=== PATIENT | female | born 1955 | race Caucasian/White ===

== ENCOUNTER 2017-04-03 06:50 | Day surgery (SDC) | payer BC ==
[~2017-04-03 06:50] MED LIST: Lactated Ringers 1,000 ML IV SCH; Lidocaine 1%/Sod Bicarbonate in NS 8.4% 1 ML Syringe PRN; Sodium Chloride 0.9% 10 ML Syringe FLUSH PRN
[2017-04-03] MEDS ORDERED: Lidocaine 1%/Sod Bicarbonate in NS 8.4% 1 ML Syringe SUBCUT ONE (07:29)
[2017-04-03] MEDS ORDERED: Lactated Ringers 1,000 ML IV SCH (07:30)
[2017-04-03] MEDS ORDERED: Lidocaine 1%/Sod Bicarbonate in NS 8.4% 1 ML Syringe ONE (07:45)
--- NOTE | 2017-04-03 07:58 | PCM.PREANE ---
Preanesthetic Assessment - Procedure Proposed Procedure: Diagnostic Colonoscopy - Anesthesia/Transfusion/Family Hx Anesthesia History: Prior Anesthesia Without Reaction Family History of Anesthesia Reaction: No - Review of Systems General: Fatigue Pulmonary: No Symptoms Cardiovascular: Chest Pain (monor chest pressure with evening lovenox dose) Gastrointestinal: No symptoms Neurological: Headache (has recently had severe Head aches. uncertain etiology) , Weakness (Right upper extremity from recent thoracic outlet syndrome, currently improving) Other: Reports: Thyroid Problems (has been hypothyroid in the past. currently euthyroid per current provider) - Physical Assessment NPO Status Date: 04/02/17 NPO Status Time: 22:00 O2 Sat by Pulse Oximetry: 96 Respiratory Rate: 16 Vital Signs: Last Vital Signs Temp 36.7 C 04/03/17 07:00 Pulse 95 04/03/17 07:00 Resp 16 04/03/17 07:00 BP 156/80 H 04/03/17 07:00 Pulse Ox 96 04/03/17 07:00 Height: 1.7 m Weight: 90.718 kg ASA Class: 3 Mental Status: Alert & Oriented x3 Airway Class: Mallampati = 2 Dentition: Reports: Normal Dentition Thyro-Mental Finger Breadths: 3 Mouth Opening Finger Breadths: 3 ROM/Head Extension: Full Lungs: Clear to auscultation, Normal respiratory effort Cardiovascular: Regular Rate, Regular Rhythm, No Murmurs - Allergies Allergies/Adverse Reactions: Allergies Allergy/AdvReac Type Severity Reaction Status Date / Time chlordiazepoxide Allergy Cannot Verified 03/30/17 16:11 [From Librax (with Remember clidinium)] clidinium Allergy Cannot Verified 03/30/17 16:11 [From Librax (with Remember clidinium)] ofloxacin Allergy Cannot Verified 03/30/17 16:11 Remember Influenza Virus Vaccines AdvReac Nausea and Verified 03/30/17 16:11 Vomiting levofloxacin [From Levaquin] AdvReac Nausea Verified 03/30/17 16:11 sertraline HCl [From Zoloft] AdvReac Nausea Verified 03/30/17 16:11 - Anesthesia Plan Beta Evelio: Metoprolol (extended release) Med Last Dose Date: 04/02/17 (takes only once every 24 hours) Med Last Dose Time: 09:00 - Acknowledgements Anesthesia Type Planned: MAC Pt an Appropriate Candidate for the Planned Anesthesia: Yes Alternatives and Risks of Anesthesia Discussed w Pt/Guardian: Yes Pt/Guardian Understands and Agrees with Anesthesia Plan: Yes PreAnesthesia Questionnaire HEENT History: Reports: Allergic Rhinitis, Cataract, Impaired Vision Cardiovascular History: Reports: Hypertension Respiratory History: Reports: PE (recent PE as well as emboli in abdomen. currently bridge anticoagulated with Lovenox), SOB, Other (See Below) (recent thoracic outlet syndrome) Gastrointestinal History: Reports: GERD, Other (See Below) Other Gastrointestinal History: sigmoid mass, biliary colic, gastric ulcer Genitourinary History: Reports: None [employer]ED [employer] OPERATOR History: Reports: None Other Musculoskeletal History: Chronic neck "stiffness" Other Neuro History: viral encephalitis Psychiatric History: Reports: Anxiety, Depression Endocrine/Metabolic History: Reports: Hypothyroidism Hematologic History: Reports: None Immunologic History: Reports: None Oncologic (Cancer) History: Reports: None Dermatologic History: Reports: None - Past Surgical History Head Surgeries/Procedures: Reports: None GI Surgical History: Reports: Cholecystectomy Musculoskeletal Surgical History: Reports: Arthroscopic Procedure Other Musculoskeletal Surgeries/Procedures:: knee arthroscopy - SUBSTANCE USE Smoking Status *Q: Never Smoker Second Hand Smoke Exposure: No Days Per Week of Alcohol Use: 0 Number of Drinks Per Day: 0 Total Drinks Per Week: 0 Recreational Drug Use History: No - HOME MEDS Home Medications: Home Meds Lisinopril 10 mg PO DAILY 06/16/15 [History] Lutein/Minerals/Vit A,C & E [Ocuvite] 1 tab PO DAILY 06/16/15 [History] Enoxaparin Sodium [Enoxaparin Sodium] 40 mg SQ BID 03/30/17 [History] Magnesium Oxide/Mag AA Chelate [Magnesium] 300 mg PO DAILY 03/30/17 [History] Metoprolol Succinate [Metoprolol Succinate] 50 mg PO DAILY 03/30/17 [History] Multivitamin [Poly-Vitamin] 1 tab PO DAILY 03/30/17 [History] atorvaSTATin Calcium [Atorvastatin Calcium] 10 mg PO DAILY 03/30/17 [History] - CURRENT (IN HOUSE) MEDS Current Meds: Current Medications Lactated Ringer's (Ringers, Lactated) 1,000 mls @ 125 mls/hr IV ASDIRECTED ALPA Stop: 04/03/17 23:00 Last Admin: 04/03/17 07:20 Dose: 125 mls/hr Discontinued Medications Fentanyl (Sublimaze) Confirm Administered Dose 100 mcg .ROUTE .STK-MED ONE Stop: 04/03/17 08:08 Lactated Ringer's (Ringers, Lactated) 1,000 mls @ 125 mls/hr IV ASDIRECTED ALPA Stop: 03/31/17 23:00 Lidocaine/Sodium Bicarbonate (Buffered Lidocaine 1% In Ns 8.4%) 0.25 ml .XX ONETIME PRN PRN Reason: Prior to IV Start Stop: 03/31/17 18:00 Lidocaine/Sodium Bicarbonate (Buffered Lidocaine 1% In Ns 8.4%) 1 ml .XX ONETIME ONE Stop: 04/03/17 07:46 Last Admin: 04/03/17 07:19 Dose: 0.25 ml Midazolam HCl (Versed 1 Mg/Ml) Confirm Administered Dose 2 mg .ROUTE .STK-MED ONE Stop: 04/03/17 08:08 Propofol (Diprivan 20 Ml) Confirm Administered Dose 200 mg .ROUTE .STK-MED ONE Stop: 04/03/17 08:08 Sodium Chloride (Saline Flush) 10 ml FLUSH ASDIRECTED PRN PRN Reason: Keep Vein Open Stop: 03/31/17 18:00
[2017-04-03] MEDS ORDERED: Propofol 200 MG/20 ML SDV ONE (08:07)
[2017-04-03] MEDS ORDERED: Midazolam 1 MG/ML 2 ML SDV ONE (08:07)
[2017-04-03] MEDS ORDERED: fentaNYL 100 MCG/2 ML SDV ONE (08:07)
[2017-04-03] MEDS ORDERED: Lidocaine 1% 6 ML ONE (08:11)
[2017-04-03 08:46] VITALS: BP 145/70
--- NOTE | 2017-04-03 08:51 | PCM.OPNOTE ---
- General Post-Op/Procedure Note Date of Surgery/Procedure: 04/03/17 Operative Procedure(s): Colonoscopy with cold forceps proximal descending colonic diminutive polypectomy and cold forcep biopsy of a distal sigmoid polypoid mass lesion 4. Findings: 1. 5 mm proximal descending colonic polyp 2. Uncomplicated sigmoid diverticuli with circular muscule hypertrophy 3. Distal sigmoid 3 cm polypoid friable mass lesion Pre Op Diagnosis: Sigmoid mass by imaging Post-Op Diagnosis: 1. Polypoid distal sigmoid mass. 2. Proximal descending colonic diminutive polyp. 3. Uncomplicated sigmoid diverticulosis Anesthesia Technique: MAC, Moderate sedation Primary Surgeon: Andres Burns Pathology: 1. Diminutive colonic polyp 2. Multiple biopsies of a sigmoid mass lesion EBL in mLs: 0 Complications: None Condition: Good Free Text/Narrative:: After standard monitoring and adequate IV sedation with analgesia the patient was placed in the left lateral decubitus position. Perianal inspection and digital rectal examination were normal. A lubricated colonoscope was inserted into the rectum then advanced under direct vision to the cecum without difficulty. The appendiceal orifice was clearly identified. The bowel preparation was excellent. The cecum, right colon, and transverse colons were endoscopically normal with no mass lesions or inflammatory changes seen. Just after the splenic flexure within the proximal descending colon there was a diminutive polyp about 5 mm in diameter. This was removed with cold forceps. The specimen was retrieved and the biopsy site was hemostatic. The distal descending colon was endoscopically normal. Within the sigmoid there were small to moderate side scattered diverticuli associated with circular muscle hypertrophy. In the distal sigmoid there was a polypoid velvety easily friable mass lesion about 3 cm in diameter which was nonocclusive. 4 biopsies in 4 quadrants were taken for histopathological evaluation. The biopsy sites were hemostatic. The proximal and distal rectum were unremarkable with no additional mass lesions or inflammatory changes appreciated. Air was removed as I finished the procedure which she tolerated well. Nail Expert photographs were taken for the patient and for the record. The patient was taken to the recovery area in stable condition. There were no procedural complications.
--- NOTE | 2017-04-03 11:20 | PCM48HPAN ---
Post Anesthesia Note - EVALUATION WITHIN 48HRS OF ANESTHETIC Vital Signs in Normal Range: Yes Patient Participated in Evaluation: Yes Respiratory Function Stable: Yes Airway Patent: Yes Cardiovascular Function Stable: Yes Hydration Status Stable: Yes Pain Control Satisfactory: Yes Nausea and Vomiting Control Satisfactory: Yes Mental Status Recovered: Yes
== END 2017-04-03 09:21 | disposition home or self-care (01) ==
LOC: JD.SDS 06:50
PROVIDERS: ATTEND Surgery
DX: D12.4 Benign neoplasm of descending colon (principal); D12.5 Benign neoplasm of sigmoid colon; K57.32 Diverticulitis of large intestine without perforation or abscess without bleeding; F41.9 Anxiety disorder, unspecified; I10 Essential (primary) hypertension; Z88.1 Allergy status to other antibiotic agents; Z88.8 Allergy status to other drugs, medicaments and biological substances; Z79.899 Other long term (current) drug therapy; Z98.890 Other specified postprocedural states
CPT/HCPCS: 45380; J2250; J3010; J7120; 00810; J2704